=== PATIENT | female | born 1940 | race Caucasian/White ===

== ENCOUNTER 2017-01-18 08:20 | Inpatient (IN) ==
[2017-01-10 14:41] LABS: Basophils # (Auto) 0 K/mcL (0.0-0.3); Basophils % (Auto) 0.2 % (0.0-2.0); Eosinophils # (Auto) 0 K/mcL (0.0-0.7); Eosinophils % (Auto) 0.1 % (0.0-7.0); Lymphocytes % (Auto) 14.9 % (15.5-49.0); Mean Cell Volume 93.1 fL (80.0-100.0); Mean Corpuscular HGB Conc 33.2 g/dL (31.0-36.0); Mean Corpuscular Hemoglobin 30.9 pg (26.0-34.0); Monocytes # (Auto) 1.1 K/mcL (0.1-0.9); Monocytes % (Auto) 7.8 % (1.0-12.0); Platelet Count 243 K/mcL (140-440); RBC 4.14 M/mcL (4.00-5.20); Red Cell Distribution Width 13.3 % (11.5-14.5)
[2017-01-10 14:51] LABS: Blood Urea Nitrogen 24 mg/dl (8-23)
[2017-01-10 15:01] LABS: Appearance,Urine CLEAR; Bilirubin,Urine NEG (NEG); Color,Urine YELLOW; Glucose,Urine (UA) NEGATIVE (NEG); Leukocyte Esterase,Urine NEG /uL (NEG); Nitrate,Urine NEG (NEG); Protein,Urine NEG (NEG); Specific Gravity,Urine 1.023 (1.000-1.035); Urine Blood NEG mg/dL (<0.03); Urobilinogen,Urine NEG (NEG)
[~2017-01-18 08:20] MED LIST: ACETAMINOPHEN 500 MG TABLET PO SCH; CELECOXIB 200 MG CAPSULE PO SCH; PREGABALIN 75 MG CAPSULE PO SCH; ceFAZolin 1 GM VIAL IV SCH; oxyCODONE 10 MG TAB.ER.12H PO SCH
[2017-01-18] MEDS ORDERED: GENTAMICIN SULFATE 800 MG/20 ML VIAL IR ONE (10:32)
[2017-01-18] MEDS ORDERED: PHENYLEPHRINE 10 MG/ML VIAL IV ONE (12:10)
[2017-01-18] MEDS ORDERED: ONDANSETRON 4 MG/2 ML VIAL IV ONE (12:10)
[2017-01-18] MEDS ORDERED: SUCCINYLCHOLINE 20 MG/ML ML IV ONE (12:10)
[2017-01-18] MEDS ORDERED: MIDAZOLAM 5 MG/5 ML VIAL IV ONE (12:10)
[2017-01-18] MEDS ORDERED: TRANEXAMIC ACID 1,000 MG/10 ML VIAL IV ONE ×2 (12:10→14:01)
[2017-01-18] MEDS ORDERED: LIDOCAINE HCL/PF 100 MG/5 ML SYRINGE IV ONE (12:10)
[2017-01-18] MEDS ORDERED: DEXAMETHASONE 10 MG/ML VIAL IV ONE (12:10)
[2017-01-18] MEDS ORDERED: PROPOFOL 200 MG/20 ML VIAL IV ONE (12:10)
[2017-01-18] MEDS ORDERED: ePHEDrine 50 MG/ML AMPUL IV ONE (12:10)
[2017-01-18] MEDS ORDERED: ATROPINE SULFATE 0.4 MG/ML VIAL IV PRN (13:17)
[2017-01-18] MEDS ORDERED: ePHEDrine 50 MG/ML AMPUL IV PRN (13:17)
[2017-01-18] MEDS ORDERED: fentaNYL 100 MCG/2 ML VIAL IV PRN (13:17)
[2017-01-18] MEDS ORDERED: FLUMAZENIL 0.1 MG/ML ML IV PRN (13:17)
[2017-01-18] MEDS ORDERED: NALOXONE HCL 0.4 MG/ML VIAL IV PRN (13:17)
[2017-01-18] MEDS ORDERED: MEPERIDINE 25 MG/ML SYRINGE IV PRN (13:17)
[2017-01-18] MEDS ORDERED: METHOCARBAMOL 1,000 MG/10 ML VIAL IV PRN (13:17)
[2017-01-18] MEDS ORDERED: METOPROLOL TARTRATE 5 MG/5 ML VIAL IV PRN (13:17)
[2017-01-18] MEDS ORDERED: diphenhydrAMINE 50 MG/ML VIAL IV PRN (13:17)
[2017-01-18] MEDS ORDERED: ONDANSETRON 4 MG/2 ML VIAL IV PRN ×2 (13:17→14:01)
[2017-01-18] MEDS ORDERED: BENZOCAINE/MENTHOL 1 LOZENGE PO PRN ×2 (13:17→14:01)
[2017-01-18] MEDS ORDERED: IPRATROPIUM/ALBUTEROL 3 ML AMPUL.NEB NEB PRN (13:17)
[2017-01-18] MEDS ORDERED: HYDROmorphone 2 MG/ML SYRINGE IV PRN ×2 (13:17→14:01)
[2017-01-18] MEDS ORDERED: LACTATED RINGERS 1,000 ML IV SCH (13:30)
--- NOTE | 2017-01-18 13:58 | Brief Operative Note ---
Date of procedure: 01/18/17 Pre-op diagnosis: Left hip djd Post-op diagnosis: same Procedure: left total hip cemented Grafts/Implants: Yes Anesthesia: GETA Surgeon: Devon Dupont Count Room Clerk: Jefry Kwong Specimens Removed/Pathology: none sent Condition: stable Disposition: PACU
[2017-01-18] MEDS ORDERED: MAGNESIUM HYDROXIDE 30 ML ORAL.SUSP PO PRN (14:01)
[2017-01-18] MEDS ORDERED: BISACODYL 10 MG SUPP.RECT PR PRN (14:01)
[2017-01-18] MEDS ORDERED: POLYETHYLENE GLYCOL 3350 17 GM PACKET PO PRN (14:01)
[2017-01-18] MEDS ORDERED: TEMAZEPAM 15 MG CAPSULE PO PRN (14:01)
[2017-01-18] MEDS ORDERED: ACETAMINOPHEN 325 MG TABLET PO PRN (14:01)
[2017-01-18] MEDS ORDERED: FLEETS ADULT ENEMA PR PRN (14:01)
[2017-01-18] MEDS ORDERED: KETOROLAC 15 MG/ML VIAL IV PRN (14:01)
--- NOTE | 2017-01-18 14:46 | XRay Report ---
CLINICAL INFORMATION: Postsurgical follow-up TECHNIQUE: AP pelvis and bilateral hips. AP and lateral left hip COMPARISON: None. FINDINGS: Status post left total hip arthroplasty. Alignment is anatomic. There is postsurgical soft tissue gas. Severe degenerative joint disease in the right hip IMPRESSION: Status post left total hip arthroplasty Interpreted and Authenticated by: Ortega Wells 01/18/17
[2017-01-18] MEDS: 0.45 % SODIUM CHLORIDE 1,000 ML IV SCH (16:07)
[2017-01-18] MEDS: HYDROcodone/APAP 10/325MG TABLET PO PRN ×2 (17:46→21:48)
[2017-01-18] MEDS: ceFAZolin 1 GM VIAL IV SCH (19:20)
[2017-01-18] MEDS: SENNOSIDES 1 TABLET PO SCH (20:51)
[2017-01-18] MEDS: ASPIRIN 325 MG ENTERIC COATED TABLET PO SCH (20:52)
[2017-01-18] MEDS: DOCUSATE SODIUM 100 MG CAPSULE PO SCH (20:52)
[2017-01-18] MEDS: 0.9 % SODIUM CHLORIDE 10 ML SYRINGE IV SCH (23:34)
[2017-01-19] MEDS: 0.45 % SODIUM CHLORIDE 1,000 ML IV SCH (00:34)
[2017-01-19] MEDS: ceFAZolin 1 GM VIAL IV SCH (04:13)
[2017-01-19] MEDS: 0.9 % SODIUM CHLORIDE 10 ML SYRINGE IV SCH ×3 (04:13→20:28)
[2017-01-19] MEDS: HYDROcodone/APAP 10/325MG TABLET PO PRN ×3 (05:17→20:27)
[2017-01-19] MEDS: DOCUSATE SODIUM 100 MG CAPSULE PO SCH ×2 (08:55→20:29)
[2017-01-19] MEDS: ASPIRIN 325 MG ENTERIC COATED TABLET PO SCH ×2 (08:55→20:27)
[2017-01-19] MEDS ORDERED: ASPIRIN 81 MG TAB.CHEW PO SCH (09:00)
--- NOTE | 2017-01-19 09:34 | Orthopedic Progress Note ---
Subjective Patient information: Note initiated : 01/19/17 at 9:33 am Service Date, if different from initiated Date: [] Patient: Ana Lala 77 y/o F admitted on 01/18/17 for Left Total Hip Arthroplasty. Chief Complaint: [minimal pain and is walking well] Objective Vital signs: Vital Signs Temp Pulse Resp BP Pulse Ox 01/19/17 08:00 96 01/19/17 06:25 97.2 F 20 98/60 96 01/19/17 04:00 97.0 F 104 H 18 107/63 96 01/19/17 00:00 97.0 F 93 H 16 111/68 96 01/18/17 20:00 97.9 F 104 H 16 117/70 98 01/18/17 18:00 100 01/18/17 17:45 116/70 100 01/18/17 16:45 111/68 100 01/18/17 16:15 115/75 100 01/18/17 16:05 100 01/18/17 15:45 116/75 100 01/18/17 15:30 96 H 14 117/74 100 01/18/17 15:15 112/74 99 01/18/17 15:00 14 118/75 100 01/18/17 14:53 98.0 F 97 H 12 110/59 100 01/18/17 14:47 100 H 12 124/63 100 01/18/17 14:42 108 H 16 126/65 99 01/18/17 14:37 104 H 18 132/67 100 01/18/17 14:32 105 H 16 118/58 100 01/18/17 14:27 108 H 16 114/65 100 01/18/17 14:22 100 H 13 118/56 100 01/18/17 14:17 103 H 13 120/63 100 01/18/17 14:12 97.6 F 116 H 16 125/68 99 Intake and Output 01/18/17 01/19/17 01/19/17 21:59 05:59 13:59 Intake Total 2150 / 2150 1430 / 1430 500 / 500 Output Total 200 / 200 800 / 800 625 / 625 Balance 1949 630 / 630 -125 / -125 Intake: Oral 200 / 200 1430 / 1430 500 / 500 Other 1949 Output: Void Amount 800 / 800 625 / 625 Estimated Blood Loss 200 / 200 Other: Meal Dinner Percent of Meal Consumed 75% Feeding Ability Assist with Tray Set Up # Voids 1 1 Weight 149 lb Intake & Output: Intake & Output 01/18/17 01/19/17 01/19/17 21:59 05:59 13:59 Intake Total 2150 / 2150 1430 / 1430 500 / 500 Output Total 200 / 200 800 / 800 625 / 625 Balance 1949 630 / 630 -125 / -125 Weight 149 lb Intake: Oral 200 / 200 1430 / 1430 500 / 500 Other 1949 Output: Void Amount 800 / 800 625 / 625 Estimated Blood Loss 200 / 200 Other: Meal Dinner Percent of Meal Consumed 75% Feeding Ability Assist with Tray Set Up # Voids 1 1 Incision: Yes healing Incision clean and dry: Yes Dressing: Yes clean Weight bearing status: full Neurological exam IM: Yes neurovascular intact Extremities exam IM: Yes Foot pink and warm, Yes neurovascular intact (dc home) - Labs CBC & BMP: 01/19/17 04:50 01/10/17 11:47 Labs: Orthopedic Labs 01/10/17 11:47 PT 14.2 INR 1.1 APTT 33 01/19/17 01/10/17 04:50 11:47 Hgb 12.8 Hct 29.5 L 38.6
--- NOTE | 2017-01-19 09:40 | Discharge Summary ---
Ortho Discharge - [facility] - Patient Instructions Diet: Regular Diet Activity: activity as tolerated, weight bearing as tolerated Total Hip Protocol: Follow activity instructions as provided by Physical Therapy. Dressing Care: Rylie Martinez - leave on for 5 days Patient Education: Total Hip Replacement (DC) Additional Instructions: Discharge Instructions: Do the exercises at home that physical therapy gave you. Take your prescription, photo ID, insurance cards, and current medication list with you to your first physical therapy appointment. Take your prescription to corn picker any medication or equipment (such as walker, crutches, toilet riser or C.P.M.) Wear comfortable clothing for your physical therapy. Weight bearing as tolerated. You have Dermabond (a dressing with a mesh-like appearance), leave open to air. Do not remove this dressing. You may start showering on post op day #2. The Dermabond dressing can get wet, do not scrub dressing. Pat dry. To avoid constipation while taking any narcotic pain medication, take an over the counter stool softener/laxative. Use ice packs as directed, on for 20 minutes at a time throughout the day. This and elevation will help with pain and swelling. Call your physician for fevers above 100.5 or pain not controlled by medication. Your prescriptions are with your discharge information. Some medications were electronically transmitted to your pharmacy of choice. - Follow Up Plan Follow Up Appointments: Devon Dupont MD [Physician] - 01/31/17 1:40 pm Disposition: Xfer SNF Prognosis: Good Rehab Potential: Good I certify that the patient requires SNF services: Yes Overall status at discharge: patient is progressing back to baseline - Orders For Discharge Prescriptions: Aspirin [Ecotrin] 325 mg PO BID #28 tab.ec HYDROcodone/APAP 10/325MG [[place] 10/325Mg] 1 - 2 tab PO Q4H PRN #60 tablet PRN Reason: Pain Additional Discharge Orders: Physical Therapy at Discharge - [facility] Location: Determined By Patient Toilet Riser Discharge Order Location: Determined By Patient Walker Location: Determined By Patient
[2017-01-19] MEDS ORDERED: FLU VACC QS2017-18 36MOS UP/PF 60 MCG/0.5 ML SYRINGE IM ONE (10:00)
[2017-01-19] MEDS: SENNOSIDES 1 TABLET PO SCH (20:27)
[2017-01-20] MEDS: HYDROcodone/APAP 10/325MG TABLET PO PRN ×3 (03:27→20:11)
[2017-01-20] MEDS: 0.9 % SODIUM CHLORIDE 10 ML SYRINGE IV SCH ×3 (05:09→20:12)
--- NOTE | 2017-01-20 09:18 | Orthopedic Progress Note ---
Orthopedics - Auxillary Note - Subjective Patient Information: Note initiated : 01/20/17 at 9:14 am Service Date, if different from initiated Date: [] Patient: Ana Lala 77 y/o F admitted on 01/18/17 for Left Total Hip Arthroplasty. Chief Complaint: mild pain, difficulty getting in and out of bed. bandages c/d/i nvi-distal Vital Signs Temp Pulse Resp BP Pulse Ox 01/20/17 07:33 98.7 F 20 106/62 94 01/20/17 05:08 94 01/20/17 04:00 97.7 F 91 H 14 127/68 94 01/20/17 00:00 97.4 F 100 H 16 124/73 96 01/19/17 20:00 97.6 F 108 H 16 112/57 95 01/19/17 16:00 96 01/19/17 15:11 97.6 F 20 108/63 96 01/19/17 14:00 96 01/19/17 12:37 95 01/19/17 11:51 98 F 20 102/67 95 01/19/17 10:00 95 Intake and Output 01/19/17 01/20/17 01/20/17 21:59 05:59 13:59 Intake Total 640 / 640 400 / 400 Output Total 1100 / 1100 600 / 600 Balance -460 / -460 -200 / -200 Intake: Oral 640 / 640 400 / 400 Output: Void Amount 1100 / 1100 600 / 600 Other: Meal Dinner Percent of Meal Consumed 100% Feeding Ability Assist with Tray Set Up # Voids 1 Weight 150 lb s/p L total hip arthroplasty-stable mobilize with PT Discharge to SNF tomorrow 01/21/17.
[2017-01-20] MEDS: DOCUSATE SODIUM 100 MG CAPSULE PO SCH ×2 (09:34→21:47)
[2017-01-20] MEDS: ASPIRIN 325 MG ENTERIC COATED TABLET PO SCH ×2 (09:34→20:12)
[2017-01-20] MEDS: SENNOSIDES 1 TABLET PO SCH (21:47)
[2017-01-21] MEDS: HYDROcodone/APAP 10/325MG TABLET PO PRN ×3 (01:26→11:27)
[2017-01-21] MEDS: 0.9 % SODIUM CHLORIDE 10 ML SYRINGE IV SCH (05:17)
--- NOTE | 2017-01-21 08:21 | Operative Note ---
DATE OF OPERATION: 01/18/2017 PREOPERATIVE DIAGNOSIS: A very pleasant female with left hip degenerative arthritis, severe. POSTOPERATIVE DIAGNOSIS: A very pleasant female with left hip degenerative arthritis, severe. PROCEDURE: Left total hip arthroplasty. SURGEON: Devon Dupont MD. OPAL POLISHER: Jefry Kwong PA-C. ANESTHESIA: General LMA anesthesia. COMPLICATIONS: None. BLOOD LOSS: Less than 100 mL. IMPLANTS PLACED: A size 5 cemented stem with a neutral neck length with a 36 mm ceramic ball with a 50 mm cup and a poly liner and two screws that hold the cup. DESCRIPTION OF PROCEDURE: The patient was brought to the operating room and put to sleep with general LMA anesthesia. Once asleep, the patient had the left leg sterilely prepped and draped in the usual sterile fashion in the right lateral position. Once we confirmed the operative site with a time out, preop antibiotics given and tranexamic acid confirmed as given. We then sterilely prepped and draped the left lower extremity. We placed Ioban over the skin and confirmed the initials on the hip. We then placed a superior posterior approach to the hip with approximately a 4-inch incision. Through this, we went through the skin and fascial layer, identified the superior posterior capsule which was released using a Bovie. Piriformis obturator internus was released. We then dislocated the hip and made the neck cut at 30 mm below the center of hip rotation and then subluxed the hip anteriorly. Once complete, we then removed the labrum and reamed up to the size 49, implanted a 50 cup with two screws. We tried to fill the other hole with a 30 and 35. These did not sit flush. Once this was unable to be done we then placed a 36 mm highly cross-linked poly liner. The position of the cup was at 40 degrees and 20 degrees of anteversion. Small spurs anteriorly were removed. We irrigated thoroughly. We then broached the femur up to the size 5. This was very thin bone. For this reason, we cemented the stem. After we trialed the size 5 stem with a neutral neck length, this confirmed equal leg length. We then cemented into place a size 5 stem. We placed a neutral neck with a 36 mm ball. This was reduced after the cement had been cured. We then repaired the capsule with #2 Ethibond, closed the fascial layer with #1 Stratafix, closed the skin with 2-0 Vicryls and adhesive closure superficially. The patient tolerated this well without complication. LALA:rommel Job ID: [id number] Doc ID: [id number] Devon Dupont MD
[2017-01-21] MEDS ORDERED: MELOXICAM 7.5 MG TABLET PO SCH (09:00)
[2017-01-21] MEDS: ASPIRIN 325 MG ENTERIC COATED TABLET PO SCH (09:36)
[2017-01-21] MEDS: DOCUSATE SODIUM 100 MG CAPSULE PO SCH (09:37)
[2017-01-21] MEDS ORDERED: FLU VACC QS2017-18 36MOS UP/PF 60 MCG/0.5 ML SYRINGE IM ONE (11:00)
== END 2017-01-21 11:30 | DRG 470 ==
LOC: MEDSUR 08:20
PROVIDERS: ADMIT Orthopaedic Surgery; ATTEND Orthopaedic Surgery

== ENCOUNTER 2017-08-13 11:00 | Inpatient (IN) ==
[2017-08-13 13:36] LABS: Appearance,Urine CLEAR; Bilirubin,Urine NEG (NEG); Color,Urine YELLOW; Glucose,Urine (UA) NEGATIVE (NEG); Leukocyte Esterase,Urine NEG /uL (NEG); Protein,Urine NEG (NEG); Specific Gravity,Urine 1.019 (1.000-1.035); Urine Blood NEG mg/dL (<0.03); Urobilinogen,Urine NEG (NEG)
[2017-08-13 13:52] LABS: Basophils # (Auto) 0 K/mcL (0.0-0.3); Basophils % (Auto) 0.3 % (0.0-2.0); Eosinophils # (Auto) 0.2 K/mcL (0.0-0.7); Eosinophils % (Auto) 1.5 % (0.0-7.0); Granulocytes % (Auto) 73.8 % (38.0-78.0); Lymphocytes # (Auto) 2.5 K/mcL (1.5-4.8); Lymphocytes % (Auto) 17.2 % (15.5-49.0); Mean Cell Volume 91.8 fL (80.0-100.0); Mean Corpuscular Hemoglobin 30.3 pg (26.0-34.0); Monocytes % (Auto) 7.2 % (1.0-12.0); Platelet Count 239 K/mcL (140-440); RBC 4.22 M/mcL (4.00-5.20); Red Cell Distribution Width 14.1 % (11.5-14.5)
[2017-08-13 14:01] LABS: Blood Urea Nitrogen 24 mg/dl (8-23)
[2017-08-19] MEDS ORDERED: CELECOXIB 200 MG CAPSULE PO SCH (05:00)
[2017-08-19] MEDS ORDERED: ACETAMINOPHEN 500 MG TABLET PO SCH (05:00)
[2017-08-19] MEDS ORDERED: ceFAZolin 1 GM VIAL IV SCH (05:00)
[2017-08-19] MEDS ORDERED: PREGABALIN 75 MG CAPSULE PO SCH (05:00)
[2017-08-19] MEDS ORDERED: oxyCODONE 10 MG TAB.ER.12H PO SCH (05:00)
[2017-08-19] MEDS ORDERED: KETOROLAC 30 MG, ROPIVACAINE HCL/PF 49.5 ML, EPINEPHrine 0.5 MG, 0.9 % SODIUM CHLORIDE ... IJ ONE (09:00)
[2017-08-19] MEDS ORDERED: PROPOFOL 200 MG/20 ML VIAL IV ONE (09:03)
[2017-08-19] MEDS ORDERED: LIDOCAINE HCL/PF 100 MG/5 ML SYRINGE IV ONE (09:03)
[2017-08-19] MEDS ORDERED: GLYCOPYRROLATE 0.2 MG/ML VIAL IV ONE (09:03)
[2017-08-19] MEDS ORDERED: MIDAZOLAM 2 MG/2 ML VIAL ONE (09:03)
[2017-08-19] MEDS ORDERED: PHENYLEPHRINE 10 MG/ML VIAL ONE (09:03)
[2017-08-19] MEDS ORDERED: KETAMINE 10 MG/ML ML ONE (09:03)
[2017-08-19] MEDS ORDERED: ONDANSETRON 4 MG/2 ML VIAL ONE (09:03)
[2017-08-19] MEDS ORDERED: GENTAMICIN SULFATE 800 MG/20 ML VIAL IR ONE (09:41)
[2017-08-19] MEDS ORDERED: MEPERIDINE 25 MG/ML SYRINGE IV PRN (10:04)
[2017-08-19] MEDS ORDERED: ONDANSETRON 4 MG/2 ML VIAL IV PRN ×2 (10:04→10:34)
[2017-08-19] MEDS ORDERED: METHOCARBAMOL 1,000 MG/10 ML VIAL IV PRN (10:04)
[2017-08-19] MEDS ORDERED: IPRATROPIUM/ALBUTEROL 3 ML AMPUL.NEB NEB PRN (10:04)
[2017-08-19] MEDS ORDERED: ePHEDrine 50 MG/ML AMPUL IV PRN (10:04)
[2017-08-19] MEDS ORDERED: LACTATED RINGERS 1,000 ML IV SCH (10:15)
[2017-08-19] MEDS ORDERED: MAGNESIUM HYDROXIDE 30 ML ORAL.SUSP PO PRN (10:34)
[2017-08-19] MEDS ORDERED: POLYETHYLENE GLYCOL 3350 17 GM PACKET PO PRN (10:34)
[2017-08-19] MEDS ORDERED: TRANEXAMIC ACID 1,000 MG/10 ML VIAL IV SCH (10:34)
[2017-08-19] MEDS ORDERED: HYDROmorphone 2 MG/ML VIAL IV PRN (10:34)
[2017-08-19] MEDS ORDERED: BENZOCAINE/MENTHOL 1 LOZENGE PO PRN (10:34)
[2017-08-19] MEDS ORDERED: ACETAMINOPHEN 325 MG TABLET PO PRN (10:34)
[2017-08-19] MEDS ORDERED: FLEETS ADULT ENEMA PR PRN (10:34)
[2017-08-19] MEDS ORDERED: KETOROLAC 30 MG/ML VIAL IV PRN (10:34)
[2017-08-19] MEDS ORDERED: BISACODYL 10 MG SUPP.RECT PR PRN (10:34)
--- NOTE | 2017-08-19 10:34 | Brief Operative Note ---
Date of procedure: 08/19/17 Pre-op diagnosis: right hip djd severe Post-op diagnosis: same Procedure: right aditya cemented Grafts/Implants: Yes Anesthesia: GETA Findings: severe djd Complications: none Complications Description: 08/19/17 10:33 none Surgeon: Devon Dupont Feeder Loader: Jefry Kwong Estimated blood loss (cc): 50 Specimens Removed/Pathology: none sent Condition: stable Disposition: PACU
--- NOTE | 2017-08-19 11:00 | Operative Note ---
DATE OF OPERATION: 08/19/2017 PREOPERATIVE DIAGNOSIS: Right hip degenerative arthritis, severe. POSTOPERATIVE DIAGNOSIS: Right hip degenerative arthritis, severe. PROCEDURE: Right total hip arthroplasty with cemented components. SURGEON: Devon Dupont MD SAMPLE WORKER: Jefry Kwong PA-C ANESTHESIA: General LMA anesthesia. COMPLICATIONS: None. IMPLANTS: Rahel components. This is a 50 mm cup with a 35 mm screw with standard poly liner, 36 mm ceramic head with cemented stem. X-rays were taken during the case to confirm leg length. DESCRIPTION OF PROCEDURE: The patient was brought to the operating room and put to sleep with general LMA anesthesia. Once asleep, the patient had the right leg sterilely prepped and draped in the usual sterile fashion in a left lateral position. Superior posterior approach was performed. A superior approach was performed through the fascial layer and we released the capsule. Once this was done, we then exposed the hip after the timeout had been performed, placing the Charnley retractor, we dislocated the hip and made our neck cut at 30 mm in length from the center of hip rotation. We subluxed hip anteriorly, reamed up to the size 49 cup, implanted a 50 porous ingrowth cup with a 35 mm screw with 20 degrees of anteversion, 40 degrees of inclination. Once done, we then placed an all poly 36 mm liner. The canal was then broached up and lateralized, and this was trialled and reduced and we took an x-ray to confirm leg length. There was slight leg lengthening on the right. We then cemented in the place, countersinking the stem 2 mm and then kept at 15 degrees of anteversion. We removed excess cement. Once dry, we then trialed the neutral and a +2.5. Both were extremely stable. We chose a neutral neck length for stability as well as leg length. We irrigated thoroughly and implanted a ceramic head, neutral neck length. We closed the fascial layer with a Stratafix suture and closed the capsule with a #2 Ethibond stitch. Bleeding was controlled. The soft tissues were injected with a post-inject formula. The fascial layer was closed with another Stratafix in the Emiliano's fascia and then adhesive closure on the skin. The patient tolerated this well without complication. Blood loss was about 150 mL. RBSurinder:elmo Job ID: [id number] Doc ID: [id number] Devon Dupont MD
--- NOTE | 2017-08-19 11:06 | XRay Report ---
CLINICAL INFORMATION: Postop right hip prostheses COMPARISON: None. FINDINGS: Bilateral hip prostheses is in near-anatomic alignment. Older left total hip prostheses also in anatomical alignment without loosening or infection. There is no fracture or other osseous abnormality. Periarticular gas and soft tissue swelling seen as expected IMPRESSION: Negative Interpreted and Authenticated by: Ortega Hernandez 08/19/17
[2017-08-19] MEDS: 0.45 % SODIUM CHLORIDE 1,000 ML IV SCH ×2 (12:29→22:36)
[2017-08-19] MEDS: 0.9 % SODIUM CHLORIDE 10 ML SYRINGE IV SCH ×2 (14:05→22:37)
--- NOTE | 2017-08-19 14:37 | XRay Report ---
CLINICAL INFORMATION: Reason for Exam:RIGHT TOTAL HIP ARTHROPLASTY, POSTERIOR COMPARISON: None. FINDINGS: Single AP image shows right total hip prostheses prior to placement of prosthetic femoral head. Alignment appears near-anatomic on the basis of this film. Older left hip prostheses remains anatomically aligned without loosening or infection. No osseous abnormality IMPRESSION: Right total hip prostheses is in anatomic alignment Interpreted and Authenticated by: Ortega Hernandez 08/19/17
[2017-08-19] MEDS: oxyCODONE/APAP 5/325MG TABLET PO PRN (16:59)
[2017-08-19] MEDS: ceFAZolin 1 GM VIAL IV SCH (17:09)
[2017-08-19] MEDS: ASPIRIN 325 MG ENTERIC COATED TABLET PO SCH (20:02)
[2017-08-19] MEDS: DOCUSATE SODIUM 100 MG CAPSULE PO SCH (20:03)
[2017-08-19] MEDS: SENNOSIDES 1 TABLET PO SCH (20:03)
[2017-08-19] MEDS ORDERED: TEMAZEPAM 15 MG CAPSULE PO PRN (21:00)
[2017-08-20] MEDS: ceFAZolin 1 GM VIAL IV SCH (00:39)
[2017-08-20] MEDS: oxyCODONE/APAP 5/325MG TABLET PO PRN ×4 (03:12→20:41)
[2017-08-20] MEDS: 0.9 % SODIUM CHLORIDE 10 ML SYRINGE IV SCH ×3 (05:40→20:42)
[2017-08-20] MEDS: 0.45 % SODIUM CHLORIDE 1,000 ML IV SCH ×2 (07:37→15:07)
--- NOTE | 2017-08-20 07:45 | Orthopedic Progress Note ---
Subjective Patient information: Note initiated : 08/20/17 at 7:44 am Service Date, if different from initiated Date: [] Patient: Ana Lala 77 y/o F admitted on 08/19/17 for Right Total Hip Arthroplasty. Chief Complaint: [Pt is stable this morning on post operative day 1 without any significant concerns or complaints. Patients vital signs have remained stable. Patients dressing is dry and is grossly instact from a neurovascular and motor standpoint. Patients 10 point ROS is otherwise negative. ] Objective Vital signs: Vital Signs Temp Pulse Resp BP Pulse Ox 08/20/17 07:14 93 08/20/17 07:10 97.8 F 84 12 96/57 93 08/20/17 05:44 98 08/20/17 04:00 98.5 F 91 H 12 111/67 96 08/20/17 01:10 98 08/20/17 00:00 98.2 F 88 12 122/69 99 08/19/17 22:00 99 08/19/17 20:00 98.3 F 79 10 L 112/55 99 08/19/17 14:47 107/64 94 08/19/17 13:47 105/67 94 08/19/17 13:17 123/73 93 08/19/17 12:47 116/67 91 08/19/17 12:32 112/72 98 08/19/17 12:17 128/72 96 08/19/17 12:02 126/77 95 08/19/17 11:47 96.6 F L 117/78 96 08/19/17 11:15 97.0 F 80 16 125/70 96 08/19/17 11:05 88 17 134/66 100 08/19/17 10:55 78 19 140/67 100 08/19/17 10:50 97.5 F 83 15 146/80 100 08/19/17 10:45 77 11 L 139/67 100 08/19/17 10:40 79 11 L 139/67 100 08/19/17 10:35 97.5 F 83 12 158/83 100 Intake and Output 08/19/17 08/20/17 08/20/17 21:59 05:59 13:59 Intake Total 615 / 615 1423 / 1423 902 / 902 Output Total 500 / 500 450 / 450 200 / 200 Balance 115 / 115 973 / 973 702 / 702 Intake: IV 998 / 998 902 / 902 Sodium Chloride 0.45% 1,000 ml 998 / 998 902 / 902 @ 100 mls/hr IV .Q10H [facility] Rx#: [id number] Oral 615 / 615 425 / 425 Output: Urine Catheter Amount 500 / 500 Straight 500 / 500 Void Amount 450 / 450 200 / 200 Other: Meal Dinner Percent of Meal Consumed 100% Feeding Ability Independent # Voids 1 Weight 147 lb Intake & Output: Intake & Output 08/19/17 08/20/17 08/20/17 21:59 05:59 13:59 Intake Total 615 / 615 1423 / 1423 902 / 902 Output Total 500 / 500 450 / 450 200 / 200 Balance 115 / 115 973 / 973 702 / 702 Weight 147 lb Intake: IV 998 / 998 902 / 902 Sodium Chloride 0.45% 1,000 ml 998 / 998 902 / 902 @ 100 mls/hr IV .Q10H [facility]DE[facility] Rx#: [id number] Oral 615 / 615 425 / 425 Output: Urine Catheter Amount 500 / 500 Straight 500 / 500 Void Amount 450 / 450 200 / 200 Other: Meal Dinner Percent of Meal Consumed 100% Feeding Ability Independent # Voids 1 Incision: Yes healing Incision clean and dry: Yes Dressing: Yes clean Weight bearing status: full Neurological exam IM: Yes motor sensory intact, Yes neurovascular intact Extremities exam IM: Yes Foot pink and warm, Yes neurovascular intact - Labs CBC & BMP: 08/20/17 04:40 08/13/17 11:25 Labs: Orthopedic Labs 08/13/17 11:25 PT 13.6 INR 1.0 APTT 33 08/20/17 08/13/17 04:40 11:25 Hgb 12.8 Hct 27.5 L 38.7
[2017-08-20] MEDS: ASPIRIN 325 MG ENTERIC COATED TABLET PO SCH ×2 (07:48→20:41)
[2017-08-20] MEDS: DOCUSATE SODIUM 100 MG CAPSULE PO SCH ×2 (07:48→20:41)
--- NOTE | 2017-08-20 07:48 | Discharge Summary ---
Ortho Discharge - [facility] - Patient Instructions Diet: Regular Diet Activity: activity as tolerated, weight bearing as tolerated Total Hip Protocol: Follow activity instructions as provided by Physical Therapy. Dressing Care: May shower in 2 days - Follow Up Plan Follow Up Appointments: Devon Dupont MD [Physician] - 09/03/17 1:40 pm Disposition: Xfer SNF Prognosis: Good Rehab Potential: Good I certify that the patient requires SNF services: Yes Overall status at discharge: patient is progressing back to baseline - Orders For Discharge Prescriptions: Aspirin [Ecotrin] 325 mg PO BID #60 tab.ec Docusate Sodium [Colace] 100 mg PO BID #60 cap oxyCODONE/APAP [Percocet 5-325 mg] 1 - 2 tab PO Q4HP PRN #75 tab PRN Reason: Pain Level 3-6
[2017-08-20] MEDS: SENNOSIDES 1 TABLET PO SCH (20:41)
[2017-08-21] MEDS: 0.45 % SODIUM CHLORIDE 1,000 ML IV SCH (06:06)
[2017-08-21] MEDS: 0.9 % SODIUM CHLORIDE 10 ML SYRINGE IV SCH ×3 (06:06→20:44)
[2017-08-21] MEDS: DOCUSATE SODIUM 100 MG CAPSULE PO SCH ×2 (08:03→20:44)
[2017-08-21] MEDS: oxyCODONE/APAP 5/325MG TABLET PO PRN ×2 (08:03→20:44)
[2017-08-21] MEDS: ASPIRIN 325 MG ENTERIC COATED TABLET PO SCH ×2 (08:05→20:44)
[2017-08-21] MEDS: SENNOSIDES 1 TABLET PO SCH (21:50)
[2017-08-22] MEDS: 0.9 % SODIUM CHLORIDE 10 ML SYRINGE IV SCH (06:02)
[2017-08-22] MEDS: ASPIRIN 325 MG ENTERIC COATED TABLET PO SCH (09:03)
[2017-08-22] MEDS: DOCUSATE SODIUM 100 MG CAPSULE PO SCH (09:03)
[2017-08-22] MEDS: oxyCODONE/APAP 5/325MG TABLET PO PRN (09:04)
== END 2017-08-22 10:05 | DRG 470 ==
LOC: MEDSUR 08-19 06:33
PROVIDERS: ADMIT Orthopaedic Surgery; ATTEND Orthopaedic Surgery